=== PATIENT | female | born 1995 | race Caucasian/White ===

== ENCOUNTER 2024-04-08 08:02 | Outpatient (CLI) | payer OTHER, MEDICAID, SELFPAY ==
--- NOTE | 2024-04-08 08:15 | US_ITS ---
Patient: ENMANUEL GRAYSON Facility:?[facility] RIS Patient ID:?[id number] Site Patient ID:?[id number]. Site :?[id number] Study:?US-OB Pelvis OB TV-04/08/2024 8:53:45 AM Ordering Physician:?ASIA EPPS CNM Final Report: HISTORY: Dating and viability COMPARISON: None available of this gestation. TECHNIQUE: Transvaginal ultrasound examination of the early was performed. FINDINGS: A single intrauterine gestational sac is seen with a pole. The crown-rump length measurement of 1.9 cm gives an estimated gestational age of 8 weeks 3 days with an estimated date of delivery of 11/15/2024. This correlates well with the LMP of 02/10/2024 which gives a clinical age of 8 weeks 2 days. Regular cardiac activity is seen at 169 BPM. There is a small subchorionic hemorrhage located inferior to the gestational sac measuring 0.9 x 1.4 by 0.7 centimeters. Incidental note is made of incomplete fusion of the amnion chorion. Two fundal fibroids are seen on the right. The largest is located more superiorly measuring 2.5 x 1.8 x 2.2 centimeters. The smaller is located more inferiorly measuring 1.7 x 1.4 x 1.9 centimeters. There is no sign of free fluid in the pelvis. There is a corpus luteum cyst of in the left ovary. The ovaries are otherwise normal in appearance. IMPRESSION: 1. Single intrauterine gestation with estimated age of 8 weeks 2 days. 2. Regular cardiac activity is seen. 3. Small subchorionic hemorrhage located inferior to the gestational sac. Dictated by Kory Montes MD @ 04/08/2024 11:23:36 AM Signed by:?Kory Montes MD @04/08/2024 11:23:36 AM (Electronic Signature)
== END 2024-04-08 08:03 | disposition home or self-care (01) ==
LOC: US 08:03
PROVIDERS: Visit Provider Advanced Practice Midwife
DX: Z34.91 Encounter for supervision of normal pregnancy, unspecified, first trimester (principal); O20.9 Hemorrhage in early pregnancy, unspecified; Z3A.08 8 weeks gestation of pregnancy
CPT/HCPCS: 76817; 84443; 86703; 86706; 86803; 86850; 86900; 86901; 87086; 87340

== ENCOUNTER 2024-04-08 09:22 | Outpatient (CLI) | payer OTHER, SELFPAY | END 2024-04-08 09:23 | disposition home or self-care (01) | PROVIDERS: Visit Provider Advanced Practice Midwife | DX: Z34.91 Encounter for supervision of normal pregnancy, unspecified, first trimester (principal); Z3A.08 8 weeks gestation of pregnancy | CPT/HCPCS: 84443; 86592; 86703; 86704; 86706; 86762; 86787; 86803; 86850; 86900; 86901; 87086; 87340 ==

== ENCOUNTER 2024-07-02 11:57 | Outpatient (CLI) | payer BC, MEDICAID, SELFPAY ==
--- NOTE | 2024-07-02 12:15 | CRLHL7_ITS ---
For Patients: As a result of the Century Cures Act, medical imaging exams and procedure reports are released immediately into your electronic medical record. You may view this report before your referring provider. If you have questions, please contact your health care provider. INDICATION: Evaluate anatomy. COMPARISON: 04/08/2024 TECHNIQUE: Real time hoff scale imaging of the fetus was performed as well as color Doppler analysis of the umbilical vessels. FINDINGS: Sonographic imaging demonstrates a single living intrauterine gestation. Fetus demonstrates a regular cardiac rate of 151 beats per minute. Fetus has a variable position. The placenta lies anteriorly without evidence of placenta previa. Edge of the placenta is located 5.8 cm from the internal cervical os. Amniotic fluid volume appears normal. Single deepest vertical pocket: 5.5 cm. The cervix is closed and measures 3.4 cm in length. The composite ultrasound gestational age is calculated at 20 weeks 4 days with an estimated sonographic due date of 11/15/2024. The estimated weight is 397 grams which lies at the 80th %. The following biometric measurements were obtained: Biparietal diameter: 4.5 cm/19 weeks 5 days 21st% Head circumference: 17.8 cm/20 weeks 2 day 35th% Abdominal circumference: 15.3 cm/20 weeks 3 day 45th% Femur length: 3.8 cm/22 weeks 1 day 91st% The HC/AC ratio measures: 1.17 range (1.07-1.25) On anatomic survey, there is a normal appearance of the cerebral ventricles, cavum septi pellucidi, cisterna magna and cerebellum. The nose and lips appear normal. Incomplete visualization of the profile due to position. The cervical, thoracic and lumbar spine are well visualized and appear normal. There is a normal four-chamber heart view and the left and right ventricular outflow tracts appear normal. The diaphragm and stomach appear normal. The kidneys and bladder also appear normal. There is a normal three-vessel cord and eccentric cord insertion site. The four extremities appear normal. IMPRESSION: Concordance of clinical and sonographic dating. Incomplete visualization of the facial profile due to position. Remainder of the anatomic survey normal. Short-term follow-up recommended. Dictated by Pierce Banks MD @ 07/02/2024 10:27:32 PM (Electronically Signed)
== END 2024-07-02 11:58 | disposition home or self-care (01) ==
LOC: US 11:57
PROVIDERS: Visit Provider Advanced Practice Midwife
DX: Z34.92 Encounter for supervision of normal pregnancy, unspecified, second trimester (principal); Z3A.20 20 weeks gestation of pregnancy
CPT/HCPCS: 76805

== ENCOUNTER 2024-07-30 12:39 | Outpatient (CLI) | payer BC, SELFPAY ==
--- NOTE | 2024-07-30 13:00 | CRLHL7_ITS ---
For Patients: As a result of the Century Cures Act, medical imaging exams and procedure reports are released immediately into your electronic medical record. You may view this report before your referring provider. If you have questions, please contact your health care provider. INDICATION: profile needed COMPARISON: 07/02/2024 TECHNIQUE: Real-time hoff-scale imaging of the pelvis was performed. FINDINGS: heart rate 133 beats per minute. Amniotic fluid single deepest pocket 4.3 cm. Anterior placenta. Vertex position. Normal profile. IMPRESSION: Normal profile. Dictated by Pierce Banks MD @ 07/30/2024 2:37:23 PM (Electronically Signed)
== END 2024-07-30 12:40 | disposition home or self-care (01) ==
LOC: US 12:39
PROVIDERS: Visit Provider Advanced Practice Midwife
DX: Z36.2 Encounter for other antenatal screening follow-up (principal)
CPT/HCPCS: 76815

== ENCOUNTER 2024-08-27 13:05 | Outpatient (CLI) | payer BC, SELFPAY | END 2024-08-27 13:06 | disposition home or self-care (01) | LOC: NFLDREF 08-31 22:59 | PROVIDERS: Visit Provider Midwife | DX: Z34.92 Encounter for supervision of normal pregnancy, unspecified, second trimester (principal); Z3A.24 24 weeks gestation of pregnancy | CPT/HCPCS: 86592 ==

== ENCOUNTER 2024-10-20 15:18 | Outpatient (CLI) | payer BC, SELFPAY | END 2024-10-20 15:19 | disposition home or self-care (01) | LOC: NFLDREF 10-23 12:10 | PROVIDERS: Visit Provider Advanced Practice Midwife | DX: Z34.03 Encounter for supervision of normal first pregnancy, third trimester (principal); Z3A.36 36 weeks gestation of pregnancy | CPT/HCPCS: 87081; 87653 ==

== ENCOUNTER 2024-10-28 14:00 | Outpatient (CLI) | payer BC, MEDICAID, SELFPAY ==
[2024-10-28 14:09] VITALS: PULSE 122; O2SAT 98
[2024-10-28 14:12] VITALS: BP 123/80; PULSE 118; TEMP 36.6
[2024-10-28 14:43] LABS: Amnisure Rom* Negative
[2024-10-28 14:53] LABS: Clue Cells No Clue Cells Seen (None Seen); Trichomonas No Trichomonas Seen (None Seen); Yeast No Yeast Seen (None Seen)
--- NOTE | 2024-10-28 15:36 | PC.OBNST ---
NST Note NST Note Start: 10/28/24 14:05 Freq: ONCE Status: Active Protocol: Document 10/28/24 15:35 ADVENT (Rec: 10/28/24 15:35 ADVENT [id number]) NST Note 1 Para (# of births) 0 EDC 11/16/24 Gestational Age In Weeks & Days 37 Weeks & 2 Days Patient Presented with Complaint(s) of Leaking fluid Reactive Yes Appropriate for Gestational Age Yes AGGIE Gomes Date 10/28/24 Reactive Yes Appropriate for Gestational Age Yes AGGIE Chan Date 10/28/24 OB NST charge Yes Complete NST Note via Write Note Yes The provider's electronic signature indicates the NST is reactive/appropriate for gestational age. *Note to provider: If an addendum is required, open the patient's chart and click on the note under the Nurse/Allied Health tab.
== END 2024-10-28 15:20 | disposition home or self-care (01) ==
LOC: OB OUT 14:01 → OB 14:01
PROVIDERS: Visit Provider Advanced Practice Midwife
DX: O47.1 False labor at or after 37 completed weeks of gestation (principal); Z3A.37 37 weeks gestation of pregnancy
CPT/HCPCS: 59025; 84112; 87210; G0463

== ENCOUNTER 2024-11-19 09:30 | Inpatient (IN) | payer BC, MEDICAID, SELFPAY ==
[2024-11-19] VITALS (21 sets, daily range): BP systolic 110–135; BP diastolic 56–90; PULSE 71–127; TEMP 36.4–36.6; O2SAT 90–100; BMI 39.2
[2024-11-19] MEDS: hydrOXYzine pamoate 25 MG CAPSULE 100 MG PO (09:13)
--- NOTE | 2024-11-19 15:00 | W.PM.LDBA ---
Subjective History of Present Illness Date Seen: 11/19/24 Narrative: Marissa is a 29 yo at 40 3/7 weeks gestation being admitted to Labor and Delivery for spontaneous onset of labor. She presented this morning for rule out labor with contractions becoming regular and more intense. While in triage she felt they had slowed down but she had made change with cervical exam. Shortly after exam, contractions again intensified. Her plan for pain relief is to try the tub or waterbirth but she is open to options if needed. She is coping well with labor. She is supported in labor by her , Aye. Her full history and physical was dictated by NAVEED Rutherford on 10/26/2024. Please see this for details. Specific Issues/Plans [id number]--Qauyir H&P done by NAVEED Rutherford on 10/26/24 # Anxiety/Depression Stable on bupropion, buspirone, fluoxetine, okay'd to refill with us during Meds managed by Arin Fragoso APRN at [place] # Pre- BMI 34.9 Taking baby ASA # Fibroids, right uterus. No further recommendations from radiology. 1.7 x 1.4 x 1.9 cm 2.5 x 1.8 x 2.2 cm # Anemia in . 9.9 at 28w-started on iron PO QOD, 11.1 at 34w Pap due COVID: initial series, not boosted Flu: declined TDAP: 09/14/2024 RSV: 09/28/2024 32wk Mental Health: 09/14/2024 34wk Hgb: 09/28/2024 :11.1 OB - Problem Based A/P Additional Plan (1) Pain during labor: Status: Acute (2) 40 weeks gestation of : Status: Acute (3) Anemia affecting : Status: Acute (4) Depression: Status: Acute (5) Generalized anxiety disorder: Status: Acute Plan ASSESSMENT:? 29 at 40 3/7 weeks gestation? complicated by:?Anxiety/Depression, Pre- BMI 34.9, Fibroids, right uterus, Anemia in Labor type: Spontaneous, Early labor? Category 1 FHR pattern.?? Labor complicated by: none? GBS negative? ? PLAN:? 1. Routine intrapartum cares as ordered. Continue with expectant management? 2. Monitoring per policy, continuous at this time due to periods of minimal variability. If remains reactive, can switch to intermittent monitoring.? 3. Planning unmedicated . Desires water . Consent signed. Hep C negative. Candidate for analgesia of choice.?? 4. Patient encouraged to reposition and ambulate to promote physiologic labor and .? 5. Anticipate ? Delivery/Labor/Induction Plan Plan: expectant management OB Result Labs Blood Type: AB (+) positive GBS Status: negative OB Exam Physical Exam Vital signs: Temp Pulse BP Pulse Ox 97.9 F 92 120/79 98 11/19/24 16:00 11/19/24 15:30 11/19/24 15:30 11/19/24 09:53 Narrative: Vitals Reviewed Constitutional:? Alert and oriented x3 HEENT:? Normocephalic, atraumatic Neck:? Supple Lungs:? Clear to auscultation bilaterally Heart:? Regular rate and rhythm, no murmur, rub or gallop Abdomen:? Soft, nontender, and gravid. Vertex by Eddy's, confirmed with cervical exam. Extremities:? No edema or erythema Cervix: 3-4 cm/60%/-1 station/vertex NST: 135 bpm/moderate variability/15x15 accelerations/no decelerations/contractions every 3-4 minutes Detailed Labor and Delivery Exam Patient Gravid: Yes
[2024-11-19 15:22] LABS: Amnisure Rom* Negative
[2024-11-19] MEDS: ONDANSETRON 2 MG/ML inj 4 MG IV (19:57)
[2024-11-19] MEDS: LACTATED RINGERS 1000 ML 1,000 ML 1200 ML IV (19:57)
[2024-11-19 20:07] LABS: Basophils Percent Auto 0.1 % (0.0-3.0); Eosinophils Percent Auto 0.2 % (0.0-7.0); Hematocrit 39.8 % (33.0-51.0); Hemoglobin* 12.7 gm/dL (12.0-16.0); Immature Granulocytes Pct Auto 0.7 %; Lymphocytes Percent Auto 11.2 % (20-44); Mean Corpuscular HGB Conc 32 gm/dL (32-36); Mean Corpuscular Hemoglobin 27 pg (26-34); Mean Corpuscular Volume 85 fL (80-100); Monocytes Percent Auto 6.1 % (0.0-11.0); Neutrophils Percent Auto 81.7 % (42.0-72.0); Platelet Count* 302 K/uL (140-440); RDW Coefficient of Variation % 14.5 % (11.5-15.5); Red Blood Count 4.68 m/uL (4.00-5.20); White Blood Count* 16.68 K/uL (4.50-11.00)
[2024-11-19 20:17] LABS: Slide Review Reflex No
[2024-11-19] MEDS: OXYTOCIN 30 unit/500 ML in NS 30 UNIT/500 ML BAG 300 UNIT IVPB (21:10)
--- NOTE | 2024-11-19 22:24 | P.OBPN_ITS ---
Subjective Time Seen by Provider: 15:30 Date Seen: 11/19/24 Narrative: Marissa is a 29 yo G1 that presented in spontaneous labor this morning. Throughout the day she was able to nap and was encouraged to do the labor warm up to facilitate labor. She is coping well with labor. She reported to the RN feeling a gush of fluid at 1440. RN nurse did an amnisure to confirm and it was negative. CNM rounding at bedside and patient reporting increased contractions. Offered SVE to evaluate for ROM and cervical change to further discuss plan of staying vs going home. She is supported in labor by her , Aye. Objective Exam: Objective: Constitutional: Alert and oriented x3, moderate distress, coping well Vital signs stable, see nurse documentation Abdomen: gravid, contractions palpate moderate with contractions and soft between Cervix: 4.5 cm/70%/0 station/vertex; ROM confirmed with exam. Mec stained fluid noted NST: 150 bpm/moderate variability/15x15 accelerations/no decelerations/contractions every 1-5 Vital Signs: Last Vital Signs Temp 97.6 F 11/19/24 17:23 Pulse 110 H 11/19/24 22:09 BP 114/60 11/19/24 22:09 Pulse Ox 90 11/19/24 20:18 Assessment Amniotic Membrane Status: SROM Plan Plan: 29 at 40 3/7 weeks gestation? complicated by:?Anxiety/Depression, Pre- BMI 34.9, Fibroids, right uterus, Anemia in Labor type: Spontaneous, Early labor? Category 1 FHR pattern.?? Labor complicated by: light meconium? GBS negative? ? PLAN:? 1. Routine intrapartum cares as ordered. Continue with expectant management? 2. Monitoring per policy, continuous at this time due to periods of minimal variability. If remains reactive, can switch to intermittent monitoring.? 3. Planning unmedicated . Desires water . Consent signed. Hep C negative. Candidate for analgesia of choice.?? 4. Patient encouraged to reposition and ambulate to promote physiologic labor and .? 5. Meconium stained fluid, INFORMATION SECURITY ARCHITECT notified, will call to attend delivery when pushing or complete. 5. Anticipate ?
[2024-11-19] MEDS: ACETAMINOPHEN 500 MG TABLET 1000 MG PO (22:43)
--- NOTE | 2024-11-19 22:51 | W.PM.OBVAGDE ---
OB Procedure Vag Delivery Mother Details Mother Details: The patient is a 29 year-old, 1, now Para 1, admitted on 11/19/24 at 40.3 weeks gestation. : 1 Para: 1 Admission Date: 11/19/24 Additional Details Amniotic Membrane Rupture Date: 11/19/24 Amniotic Membrane Rupture Time: 14:40 Amniotic Membrane Fluid Description: Meconium Stained and Yellow Analgesia/Anesthesia Type: None Waterbirth: Yes Pitcoin: Yes ([facility] only) Intrapartal Events: None Labor Onset: 16:43 Complete: 20:18 Pushin:00 Heart: heart tones during second stage were category II with more recurrent variables at the end of the 2nd stage with delivery imminent. Delivery Details Delivery Date: 11/19/24 Delivery Time: 20:59 Route of delivery: Gender: Female Infant Viability: Alive; Heart Rate Present Position at Delivery: OP Delivery Details: Patient was admitted for spontaneous and progressed normally. SROM noted at 1643 with meconium fluid. Patient labored for a period in the tub. She got out and was up to the bathroom. She was encouraged to do side lying release and tolerated this well but after requested an epidural. Anesthesia was notified, however patient began involuntarily pushing. Upon exam, she was noted to be complete and elected to defer epidural and return to the tub. Patient was complete at 2018 and began involuntarily pushing at 2000. of a viable female at 2058 in semi-fowlers in the tub. Vertex delivered OA, nuchal cord identified and baby was somersaulted out. No shoulder. Body delivered easily and without incident. Infant passed to mothers abdomen with a vigorous cry. Cord was clamped and cut at > 5 minutes. APGARS were 8 at one minute and 9 at five minutes respectively. Mouth was bulb suctioned. Intact placenta with a 3 vessel cord delivered spontaneously at 2125. Placenta was noted to be calcified. Fundus firm. 2nd degree perineum laceration identified, extended to rectal mucosa via skin and repaired in typical fashion. Rectal exam performed to confirm no rectal muscle involvement. QBL 300 cc + 200 cc. Mother and baby stable; mother plans to breastfeed. weight 6 lb 15 oz. 1 Minute Interval Total Score: 8 5 Minute Interval Total Score: 9 Additional Details Shoulder Dystocia: No Placenta Delivery Time: 21:26 Placental Delivery Description: Spontaneous Delivery repair: Vicryl Procedure Done: Global Blood Loss: 500 Laceration: Perineal - 2nd Degree Blood Loss Measurement Type: QBL Bakri Used: No Sponge/Need Count Correct: Yes Cord Vessel Description: 3 Vessels, Nuchal Cord, Loose and Delivered through Event Summary Status: Mother and were stable after delivery. Disposition: floor
[2024-11-20 03:51] VITALS: BP 108/74; PULSE 107; RESP 12; TEMP 36.7; O2SAT 96
[2024-11-20 08:15] VITALS: BP 116/75; PULSE 97; RESP 18; TEMP 36.7; O2SAT 97
[2024-11-20] MEDS: ACETAMINOPHEN 500 MG TABLET 1000 MG PO ×2 (09:21→22:47)
[2024-11-20] MEDS: DOCUSATE SODIUM 100 MG CAPSULE PO ×2 (09:21→22:48)
--- NOTE | 2024-11-20 10:32 | P.OBPN_ITS ---
OB - PN:Subj Subjective Date Seen: 11/20/24 Narrative: Marissa is a 29 year old who was admitted for active labor and proceeded to have a vaginal with a 2nd degree laceration that was repaired.The patient feels well.? The pain is well controlled with current medications.? She has no new complaints.? Urinary output is adequate and she is voiding without difficulty.? Has a good appetite, is tolerating a general diet, is not yet passing flatus, and has not had a bowel movement.? Has small amount of rubra lochia.? She is ambulating well. She is and reports it is going better with the nipple shield.? OB - PN: Obj Exam Physical Exam: Vital signs: Temp Pulse Resp BP Pulse Ox O2 Del Method 98.1 F 97 18 116/75 97 Room Air 11/20/24 08:15 11/20/24 08:15 11/20/24 08:15 11/20/24 08:15 11/20/24 08:15 11/20/24 03:51 Narrative: GENERAL APPEARANCE:? normal affect, alert, no distress MOOD:? appropriate CHEST:? clear to auscultation HEART:? regular rate and rhythm ABDOMEN:? soft, non-tender the uterine fundus is At Umbilicus, Midline and is appropriate for the stage of recovery. PERINEUM:? mild edema of the perineum, there is a Perineal Laceration that was repaired and is well approximated. EXTREMITIES:? normal and no edema OB - PN: Obj Data Labs Labs: Laboratory Results - last 24 hr 11/19/24 11/19/24 14:53 20:00 WBC 16.68 H RBC 4.68 Hgb 12.7 Hct 39.8 MCV 85 MCH 27 MCHC 32 RDW Coeff of Anabelle 14.5 Plt Count 302 Neut % (Auto) 81.7 H Lymph % (Auto) 11.2 L Isabela % (Auto) 6.1 Eos % (Auto) 0.2 Baso % (Auto) 0.1 Neut # (Auto) 13.60 H Lymph # (Auto) 1.90 Isabela # (Auto) 1.00 H Eos # (Auto) 0.00 Baso # (Auto) 0.00 Abs Immat Gran (auto) 0.10 Imm/Tot Granulo (auto) 0.7 Membrane Rupture Negative Blood Type AB Positive Antibody Screen NEGATIVE OB - PN: A/P Delivery Assessment and Plan (1) care and examination of lactating mother: Status: Acute (2) Pain during labor: Status: Resolved (3) 40 weeks gestation of : Status: Resolved (4) Anemia affecting : Status: Acute (5) Depression: Status: Acute (6) Generalized anxiety disorder: Status: Acute Plan Comments: PP day #1 Routine care May see as desired Anticipate discharge 11/21/2024
[2024-11-20 12:28] VITALS: BP 101/65; PULSE 103; RESP 18; TEMP 37.1; O2SAT 96
[2024-11-20 15:44] VITALS: BP 103/72; PULSE 95; RESP 18; TEMP 36.6; O2SAT 98
[2024-11-20 19:52] VITALS: BP 104/72; PULSE 108; RESP 16; TEMP 36.6; O2SAT 97
[2024-11-20] MEDS: FLUOXETINE HCL 20 MG CAPSULE 60 MG PO (22:48)
[2024-11-20] MEDS: BUSPIRONE 10 MG TABLET PO (22:48)
[2024-11-21 03:35] VITALS: BP 111/76; PULSE 97; RESP 12; TEMP 36.7; O2SAT 96
[2024-11-21] MEDS: ACETAMINOPHEN 500 MG TABLET 1000 MG PO (07:40)
--- NOTE | 2024-11-21 09:57 | P.DS_ITS ---
DS: Providers Provider Date Seen: 11/21/24 Date of admission: 11/19/24 09:30 Primary care physician: Not a Local Provider Admitting Clinician: Mabel Garcia CNM Attending Physician on discharge: Mabel Garcia CNM Date of Discharge: 11/21/24 DS: Diagnosis Discharge Diagnosis (1) care and examination of lactating mother: Status: Acute (2) Vaginal delivery: Status: Acute (3) Generalized anxiety disorder: Status: Acute (4) Depression: Status: Acute Exam Narrative: Exam Narrative: GENERAL APPEARANCE:? normal affect, alert, no distress? MOOD:? appropriate? CHEST:? clear to auscultation and percussion? HEART:? regular rate and rhythm? ABDOMEN:? soft, non-tender the uterine fundus is U/2 and is appropriate for the stage of recovery.? PERINEUM:? mild edema of the perineum, there is a 2nd degree laceration that is healing well.? EXTREMITIES:? normal and no edema? Const: Vital Signs, click to edit/add: Vital Signs - 24 hr 11/20/24 12:28 11/20/24 15:44 11/20/24 19:52 Temperature 98.7 F 97.8 F 97.8 F Pulse Rate [Pulse Oximeter] 103 H 95 108 H Respiratory Rate 18 18 16 Blood Pressure [Le ft Arm] 101/65 103/72 104/72 Pulse Oximetry 96 98 97 Oxygen Delivery Me thod Room Air Room Air Room Air 11/21/24 03:35 Temperature 98.0 F Pulse Rate [Pulse Oximeter] 97 Respiratory Rate 12 Blood Pressure [Le ft Arm] 111/76 Pulse Oximetry 96 Oxygen Delivery Me thod Room Air Documenting provider has reviewed patient's vital signs: yes OB - DS: Summary Hospital Course Hospital Course: Marissa is a 29 year old G 1 P 1 at 40.4 weeks gestation that was admitted to the Center on 11/19/24 for labor. She had an uncomplicated vaginal delivery. She delivered a viable female infant. She is breast feeding and denies concerns with how it is going. the patient has done well. Her pain is well controlled with current medications.? She has no new complaints.? Urinary output is adequate and she is voiding without difficulty.? Has a good appetite, is tolerating a general diet, is passing flatus, and has not had a bowel movement.? Has scant amount of rubra lochia.? She is ambulating well. She is not planning on using anything from contraception. Encouraged one year spacing and discussed barrier options available (condoms and Caya). She is to discharge today but it is uncertain if baby will stay an additional night for observation after apneic episodes. She has only used Tylenol occasionally and declines ibuprofen prescription on discharge. Peripartum Data Infant delivery method: Vaginal Laceration description: Perineal - 2nd Degree Episiotomy description: None complications: none [place] Infant Gender: Female Infant Discharge Plan: Home (uncertain on timing of today vs tomorrow per peds recommendation) Status at Discharge Functional status at discharge: independent ambulation Overall status at discharge: patient is progressing back to baseline Time Spent with Patient Time attestation: Total time spent providing and/or coordinating discharge services: Discharge Plan Discharge Disposition: Home, Self-Care Date of Admission: 11/19/24 09:30 Attending Provider on Discharge: Missy Carver Primary Care Provider: Provider,Not a Local Condition: Stable Anticipated Discharge Date/Time: 11/21/24 17:00 Discharge Medications: New docusate sodium 100 mg Capsule 100 mg PO BID Qty: 90 0RF Rx Instructions: Take 1-2 tablets daily as needed for constipation. Continued Plus DHA 27 mg iron-1 mg -312 mg-250 mg combo pack 1 pkg PO DAILY PRN calcium carbonate-vitamin D3 600 mg-20 mcg (800 unit) tablet 1 tab PO BID ketoconazole 2 % shampoo 1 applic topical .1xw clobetasol 0.05 % ointment 1 applic topical ONCE PRN omeprazole 20 mg capsule,delayed release(DR/EC) 20 mg PO QDAY bupropion HCl 150 mg tablet extended release 24 hr 150 mg PO QAM Qty: 90 3RF ferrous fumarate 324 mg (106 mg iron) tablet 324 mg PO .every other day Qty: 60 1RF fluoxetine 40 mg capsule 40 mg PO QDAY Qty: 60 2RF Rx Instructions: 40 mg + 20 mg capsule for 60 mg total orally every day; fluoxetine 20 mg capsule 20 mg PO QDAY Qty: 60 2RF Rx Instructions: 40 mg + 20 mg capsule for 60 mg total orally every day; buspirone 10 mg tablet 10 mg PO BID Qty: 60 1RF Discontinued aspirin 81 mg tablet,chewable 81 mg PO QDAY Discharge Orders: Discharge Order (Routine); Ordered 11/21/24 Ordered By: Missy Carver Patient Education: OB Vaginal/Breast Feeding Additional Instructions: Discharge instructions were reviewed with the patient including signs and symptoms of infection and home going medications.? Lifting Restrictions: 20 pounds for 6? weeks? ?? Do not drive while taking narcotic pain meds.? Off Work or School for 6 weeks.? ?? Symptoms to report to doctor:? -Bleeding that saturates more than one pad per hour? -Passing clots larger than the size of a golf ball? -Pain not relieved by prescribed medication? -Fever above 100.4 degrees Fahrenheit? -A foul vaginal odor? -Difficulty in emotions, mood and functions? -Thoughts of hurting yourself and/or ? -Painful, reddened area in your breast? -Any drainage, redness or tenderness in your IV/epidural site? -Severe headache that doesn't improve after taking medications? -Changes in vision, including temporary loss of vision, blurred vision, and/or light sensitivity? -Upper abdominal pain (usually under ribs on the right side)? -Decrease in urination or painful, frequent urinating? -Chest pain? -Shortness of breath? -Tenderness or pain with redness and/swelling in the calf(s) of your leg? ?? Activity Level: Activity as Tolerated Discharge Diet: Regular Follow Up Appointments: Provider,Not a Local [Primary Care Provider[facility] - [facility] [Provider Group] Forms: MyHealth Info Instructions
[2024-11-21] MEDS: DOCUSATE SODIUM 100 MG CAPSULE PO (10:51)
[2024-11-21 11:03] VITALS: BP 106/75; PULSE 96; RESP 16; TEMP 36.6; O2SAT 98
== END 2024-11-21 11:07 | disposition home or self-care (01) | DRG 560 ==
LOC: OB OUT 09:33 → OB 09:33
PROVIDERS: Admitting Provider Advanced Practice Midwife; Visit Provider Midwife
DX: O48.0 Post-term pregnancy (principal); O70.1 Second degree perineal laceration during delivery; O77.0 Labor and delivery complicated by meconium in amniotic fluid; O99.344 Other mental disorders complicating childbirth; F41.1 Generalized anxiety disorder; F32.A Depression, unspecified; O99.02 Anemia complicating childbirth; D64.9 Anemia, unspecified; O34.13 Maternal care for benign tumor of corpus uteri, third trimester; D25.9 Leiomyoma of uterus, unspecified; O43.893 Other placental disorders, third trimester; Z3A.40 40 weeks gestation of pregnancy; Z37.0 Single live birth
CPT/HCPCS: 36415; 84112; 85025; 86850; 86900; 86901; A9270; J2371; J2405; J7120

== ENCOUNTER 2024-11-26 21:26 | Inpatient (IN) | payer BC, MEDICAID, SELFPAY ==
[2024-11-26 21:39] VITALS: BP 132/92; BP 135/92; PULSE 90; RESP 16; TEMP 36.7; O2SAT 97; BMI 20.7
[2024-11-26 22:09] VITALS: BP 134/103; PULSE 80; RESP 18; O2SAT 97
--- NOTE | 2024-11-26 22:50 | ED_ITS ---
HPI - General Adult General Date Seen: 11/26/24 Chief complaint: Post OB/Post- Complication Stated complaint: 7 days high bp Time Seen by Provider: 11/26/24 21:31 Source: patient History of Present Illness HPI narrative: Patient is a 29-year-old young woman who delivered at term about a week ago here. She says and delivery were uncomplicated, she did not have any problems with her blood pressure during . She says over the past few days she has noted increasing swelling in her ankles, so today she checked her blood pressure and it was 146/108 at home. She denies any headache, chest pain, abdominal pain, nausea or vomiting. She has not had fevers, urinary symptoms. Related Data Home Medications ?Medication ?Instructions ?Recorded ?Confirmed calcium 600 mg (as 1 tab PO BID 04/08/24 11/19/24 carbonate)-vitamin D3 20 mcg (800 unit) tablet clobetasol 0.05 % topical ointment 1 applic topical ONCE PRN 04/08/24 11/19/24 ketoconazole 2 % shampoo 1 applic topical .1xw 04/08/24 11/19/24 vits-iron 27 mg-folic ac 1 pkg PO DAILY PRN 04/08/24 11/19/24 1 mg-om3 312 mg-dha 250 mg oral pack ( Plus DHA) omeprazole 20 mg capsule,delayed 20 mg PO QDAY 07/02/24 11/19/24 release Previous Rx's ?Medication ?Instructions ?Recorded fluoxetine 20 mg capsule 20 mg PO QDAY #60 caps 07/21/24 fluoxetine 40 mg capsule 40 mg PO QDAY #60 caps 07/21/24 bupropion HCl 150 mg 24 hr tablet, 150 mg PO QAM #90 tabs 08/27/24 extended release ferrous fumarate 324 mg (106 mg 324 mg PO .every other day #60 tabs 08/27/24 iron) tablet buspirone 10 mg tablet 10 mg PO BID #60 tabs 10/05/24 docusate sodium 100 mg capsule 100 mg PO BID #90 caps 11/21/24 Allergies Allergy/AdvReac Type Severity Reaction Status Date / Time citalopram (From CelTizra) Allergy Severe Anxiety Verified 11/19/24 06:30 menthol Allergy Intermediate Hives Verified 11/19/24 06:30 Review of Systems Status of ROS: Reports: 10 or more systems reviewed and unremarkable except as noted in History and below [facility] Medical History Anemia affecting ?O99.019 - Anemia complicating , unspecified trimester (ICD-10) Generalized anxiety disorder ?F41.1 - Generalized anxiety disorder (ICD-10) Family history of thyroid disease ?Z83.49 - Family history of other endocrine, nutritional and metabolic diseases (ICD-10) Depression ?F32.A - Depression, unspecified (ICD-10) Elbow dislocation ?S53.106A - Unspecified dislocation of unspecified ulnohumeral joint, initial encounter (ICD-10) Surgical History [place] teeth extracted ?K08.409 - Partial loss of teeth, unspecified cause, unspecified class (ICD- 10) Family History Mother Thyroid disease Depression Father Dissociative identity disorder Social History Narrative: SOCIAL Education: High school Work: [employer] in [employer] Partner: Aye, Associated Lives with: Aye Pets: Dog and 2 fish, tortoise, 2 bearded dragons Abuse: Denies past/present Special Diet: Denies Ok with a blood transfusion: yes Culture or presybeterian beliefs: denies RISK FACTORS Exercise Times/wk: Not routine Hx of Depression and/or Anxiety/other mood disorder: Depression/Anxiety, Arin Hak at [facility] Seat Belt Use: Routinely Smoking: Denies present; hx of smoking stopped 5 years ago Alcohol/day: Denies while ; Rare/social Caffeine: Coffee, not drinking right now; Mt dew 1 can per day Drug Use: Denies past/present; smokes in house, she denies Chicken Pox: Yes as a child MRSA: Denies What is your current living situation?: I presently have a place to live Problems where you live: no known problems In the past 12 months, utilities in danger of being shut off: no In past 12 months, lack of transportation kept you from medical appts, meetings, work, or getting things needed for daily living: no In the past 12 mos, have been you worried that your food would run out before you had money to buy more?: never true In the past 12 mos, the food you bought just didn't last and you didn't have money to buy more?: never true Smoking Status: Former smoker What tobacco products do you use: cigarettes Years smoked: 7 Smoking quit date/years: <= 15 years ago Do you use any of these nicotine containing products: None Second hand tobacco smoke exposure: No How often do you have a drink containing alcohol: never AUDIT-C Alcohol total score: 0 Non-prescribed substance use: denies use How often does anyone, including family, friends and others, physically hurt you : never How often does anyone, including family, friends and others, insult or talk down to you: never How often does anyone, including family, friends and others, threaten you with harm: never How often does anyone, including family, friends and others, scream or curse at you: never service: No Exam Narrative: Exam Narrative: Vital signs reviewed In general, alert, nontoxic Head: Normocephalic, atraumatic. Eyes: Sclera clear. Pupils equal and reactive. ENT: Mucous membranes moist. Neck: Supple without adenopathy. Heart: Regular rate and rhythm without murmur. Lungs: Clear. No increased work of breathing, crackles or wheezes. Abdomen: Soft, nontender to palpation. Extremities: Well perfused, pulses intact. Trace edema in her ankles to her shins. No erythema, no tenderness. Neurologic: Alert, conversant. Speech fluent, face symmetric. Moves all extremities equally. Skin: Warm, dry well perfused. Affect: Normal. Const: Vital Signs, click to edit/add: Vital Signs - 24 hr 11/26/24 21:39 11/26/24 22:09 Temperature 98.1 F Pulse Rate [Pulse Oximeter] 90 80 Respiratory Rate 16 18 Blood Pressure [Le ft Upper Arm] 132/92 H 134/103 H Blood Pressure [Ri ght Upper Arm] 135/92 H Pulse Oximetry 97 97 Oxygen Delivery Me thod Room Air Room Air Course Course ED Course: Several blood pressures here showed a systolic in the 130s and diastolic in the 100-110 range. However, she is not showing any other symptoms. Labs are drawn for CBC, metabolic panel, liver panel and we obtained a UA. Labs are most notable for mild elevations of her LFTs including an AST of 46 and ALT of 100. Alk phos is 155. Platelets are normal, urinalysis is unremarkable, no protein. 2-5 red cells and white cells. She has continued to remain asymptomatic here, case discussed with Dr. Davison. She will require admission for treatment of preeclampsia secondary to elevated LFTs. Patient will be transferred to the [facility] for initiation of magnesium and labetalol. Vital Signs Vital signs: Initial Vital Signs Temperature 98.1 F 11/26/24 21:39 Temperature Source Temporal Artery Scan 11/26/24 21:39 Pulse Rate 90 11/26/24 21:39 Respiratory Rate 16 11/26/24 21:39 Blood Pressure 135/92 H 11/26/24 21:39 Blood Pressure Mean 106 H 11/26/24 21:39 Blood Pressure Position Sitting 11/26/24 21:39 Pulse Oximetry 97 11/26/24 21:39 Oxygen Delivery Method Room Air 11/26/24 21:39 Vital Signs Temperature 98.1 F 11/26/24 21:39 Pulse Rate 90 11/26/24 21:39 Respiratory Rate 16 11/26/24 21:39 Blood Pressure 135/92 H 11/26/24 21:39 Pulse Oximetry 97 11/26/24 21:39 Oxygen Delivery Method Room Air 11/26/24 21:39 Temperature 98.1 F 11/26/24 21:39 Pulse Rate 80 11/26/24 22:09 Respiratory Rate 18 11/26/24 22:09 Blood Pressure 134/103 H 11/26/24 22:09 Pulse Oximetry 97 11/26/24 22:09 Oxygen Delivery Method Room Air 11/26/24 22:09 Medical Decision Making Lab Data Labs: Lab Results 11/26/24 11/26/24 Range/Units 22:23 22:42 WBC 9.39 (4.50-11.00) K/uL RBC 4.09 (4.00-5.20) m/uL Hgb 11.1 L (12.0-16.0) gm/dL Hct 35.6 (33.0-51.0) % MCV 87 (80-100) fL MCH 27 (26-34) pg MCHC 31 L (32-36) gm/dL RDW Coeff of Anabelle 14.9 (11.5-15.5) % Plt Count 376 (140-440) K/uL Neut % (Auto) 55.0 (42.0-72.0) % Lymph % (Auto) 31.6 (20-44) % [place] % (Auto) 8.3 (0.0-11.0) % Eos % (Auto) 3.6 (0.0-7.0) % Baso % (Auto) 0.4 (0.0-3.0) % Neut # (Auto) 5.16 (1.7-7.0) K/uL Lymph # (Auto) 2.97 H (0.90-2.90) K/uL [place] # (Auto) 0.80 (0.00-0.90) K/UL Eos # (Auto) 0.34 (0.00-0.50) K/uL Baso # (Auto) 0.04 (0.00-0.30) K/uL Abs Immat Gran (auto) 0.10 (0.00-0.30) K/uL Imm/Tot Granulo (auto) 1.1 % Sodium 135 (135-149) mmol/L Potassium 3.4 L (3.6-5.1) mmol/L Chloride 106 (96-114) mmol/L Carbon Dioxide 22 (20-32) mmol/L Anion Gap 7 (7-15) mEq/L BUN 7 (5-24) mg/dL Creatinine 0.6 (0.5-1.5) mg/dL Estimated Creat Clear 127.95 Estimated GFR 125 ml/min Glucose 104 (60-115) mg/dL Calcium 8.7 (8.4-10.6) mg/dL Total Bilirubin 0.2 (0.1-1.5) mg/dL Direct Bilirubin 0.2 (0.0-0.5) mg/dL AST 46 H (12-35) U/L ALT 100 H (4-35) U/L Alkaline Phosphatase 155 H (40-150) U/L Total Protein 6.6 (6.0-8.3) g/dL Albumin 3.5 (3.3-5.0) g/dL Urine Color Light yellow (Yellow) Urine Appearance Clear (Clear) Urine pH 6.0 (5.0-8.5) Ur Specific [place] <= 1.005 (1.000-1.030) Urine Protein Negative (Negative) Urine Glucose (UA) Negative (Negative) Urine Ketones Negative (Negative) Urine Blood 3+ A (Negative) Urine Nitrite Negative (Negative) Urine Bilirubin Negative (Negative) Urine Urobilinogen 0.2 (0.2-1.0) Ur Leukocyte Esterase 2+ A (Negative) Urine RBC 2-5 A (0-2) Urine WBC 5-10 A (0-5) Ur Squamous Epith Cells Few (None-Few) Urine Bacteria Few A (None) Discharge Plan Discharge Clinical Impression: Pre-eclampsia Patient Disposition: Admitted As Observation Condition: Stable
[2024-11-26 23:01] LABS: Appearance Urine Clear (Clear); Bilirubin Urine Negative (Negative); Blood Urine 3+ (Negative); Color Urine Light yellow (Yellow); Glucose Urine Negative (Negative); Ketones Urine Negative (Negative); Leukocyte Esterase Urine 2+ (Negative); Nitrite Urine Negative (Negative); Protein Urine Negative (Negative); Specific Gravity Urine <= 1.005 (1.000-1.030); Urobilinogen Urine 0.2 (0.2-1.0)
[2024-11-26 23:12] LABS: Basophils Absolute Auto 0.04 K/uL (0.00-0.30); Basophils Percent Auto 0.4 % (0.0-3.0); Eosinophils Absolute Auto 0.34 K/uL (0.00-0.50); Eosinophils Percent Auto 3.6 % (0.0-7.0); Hematocrit 35.6 % (33.0-51.0); Hemoglobin* 11.1 gm/dL (12.0-16.0); Immature Granulocytes Pct Auto 1.1 %; Lymphocytes Absolute Auto 2.97 K/uL (0.90-2.90); Lymphocytes Percent Auto 31.6 % (20-44); Mean Corpuscular HGB Conc 31 gm/dL (32-36); Mean Corpuscular Hemoglobin 27 pg (26-34); Mean Corpuscular Volume 87 fL (80-100); Monocytes Percent Auto 8.3 % (0.0-11.0); Neutrophils Absolute Auto 5.16 K/uL (1.7-7.0); Platelet Count* 376 K/uL (140-440); RDW Coefficient of Variation % 14.9 % (11.5-15.5); Red Blood Count 4.09 m/uL (4.00-5.20); Slide Review Reflex No; White Blood Count* 9.39 K/uL (4.50-11.00)
[2024-11-26 23:13] LABS: Albumin* 3.5 g/dL (3.3-5.0)
[2024-11-26 23:14] LABS: Chloride* 106 mmol/L (96-114); Potassium* 3.4 mmol/L (3.6-5.1); Sodium* 135 mmol/L (135-149)
[2024-11-26 23:16] LABS: Anion Gap 7 mEq/L (7-15); Aspartate Amino Transferase* 46 U/L (12-35); Bilirubin Direct* 0.2 mg/dL (0.0-0.5); Bilirubin Total* 0.2 mg/dL (0.1-1.5); Blood Urea Nitrogen* 7 mg/dL (5-24); Carbon Dioxide* 22 mmol/L (20-32); Creatinine* 0.6 mg/dL (0.5-1.5); Est. Creatinine Clearance* 127.95; Estimated Glomerular Filt Rate 125 ml/min; Total Protein* 6.6 g/dL (6.0-8.3)
[2024-11-26 23:16] LABS: Bacteria Urine Few; Squamous Epithelial Cell Urine Few (None-Few)
[2024-11-26 23:17] LABS: Alanine Aminotransferase* 100 U/L (4-35); Alkaline Phosphatase* 155 U/L (40-150); Calcium* 8.7 mg/dL (8.4-10.6); Glucose* 104 mg/dL (60-115)
[2024-11-27] VITALS (16 sets, daily range): BP systolic 104–146; BP diastolic 66–102; PULSE 68–96; RESP 16–18; TEMP 36.5–37; O2SAT 96–98
--- NOTE | 2024-11-27 00:37 | P.LDBA_ITS ---
Subjective History of Present Illness Date Seen: 11/27/24 Narrative: Marissa is a 29-year-old G1 now P 1-0-0-1 woman who is status post normal spontaneous vaginal delivery on 11/19/2024 at 40 weeks, 3 days gestation after presenting in spontaneous labor. 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 She had a second-degree perineal laceration and a QBL of 500 mL. She gave to a female . She had an uncomplicated in-hospital course and was discharged on day 2. Her blood pressures were normal throughout her course. Tonight, she presented to the emergency room with chief complaint of elevated blood pressures noted on home monitor. She checked her blood pressure due to a recent increase in swelling. It was normal on , but was newly elevated today. Her blood pressures have been persistently elevated in the emergency room, with systolics 130s and diastolics 90s-100s. She denies headaches, visual changes, or right upper quadrant pain. Labs in the ER notable for hemoglobin of 11.1, platelets 376, creatinine 0.6, A ST 46, ALT 100, and urine dip negative for protein. Otherwise, her recovery has been smooth. She is her infant daughter, who accompanies her today. She reports scant vaginal bleeding. No dysuria or urinary incontinence. No constipation. Past medical, surgical, family, and social history are as noted in EHR Specific Issues/Plans [id number]--Ltbolv H&P done by NAVEED Rutherford on 10/26/24 # Anxiety/Depression Stable on bupropion, buspirone, fluoxetine, okay'd to refill with us during Meds managed by Arin Fragoso APRN at [place] # Pre- BMI 34.9 Taking baby ASA # Fibroids, right uterus. No further recommendations from radiology. 1.7 x 1.4 x 1.9 cm 2.5 x 1.8 x 2.2 cm # Anemia in . 9.9 at 28w-started on iron PO QOD, 11.1 at 34w Pap due COVID: initial series, not boosted Flu: declined TDAP: 09/14/2024 RSV: 09/28/2024 32wk Mental Health: 09/14/2024 34wk Hgb: 09/28/2024 :11.1 OB - Problem Based A/P Additional Plan (1) care and examination of lactating mother: Status: Acute (2) Gestational hypertension without significant proteinuria, affecting puerperium: Status: Acute Plan: Admit to Center, inpatient, for treatment of gestational hypertension with severe features. Magnesium sulfate for seizure prophylaxis for 24 hours. Strict ins and outs during that time. HELLP labs q.6 hours. She will need oral antihypertensives most likely, but I will monitor what her blood pressures do well on magnesium sulfate infusion. Anticipate discharge in the afternoon or evening of Friday after an appropriate antihypertensive regimen is established. Plan As above OB Exam Physical Exam Vital signs: Temp Pulse Resp BP Pulse Ox O2 Del Method 98.1 F 80 18 134/103 H 97 Room Air 11/26/24 21:39 11/26/24 22:09 11/26/24 22:09 11/26/24 22:09 11/26/24 22:09 11/26/24 22:09 Narrative: Physical exam: General: No acute distress Psych: Alert and oriented x3, full affect HEENT: Normocephalic, atraumatic Heart: Regular rate and rhythm, no murmur rub or gallop Lungs: Clear to auscultation bilaterally Abdomen: Soft, nontender, fundus below umbilicus Lower extremities: 2+ edema bilateral shins Pelvic exam: Deferred
[2024-11-27] MEDS: MAGNESIUM IV 4 GM/100 ML PIGGYBACK IVPB (02:22)
[2024-11-27] MEDS: MAGNESIUM Infusion 40 GM/1,000 ML IV.SOLN IVPB ×2 (02:52→21:56)
[2024-11-27] MEDS: ACETAMINOPHEN 500 MG TABLET 1000 MG PO ×3 (03:20→18:15)
[2024-11-27 08:16] LABS: Hematocrit 34.1 % (33.0-51.0); Hemoglobin* 10.8 gm/dL (12.0-16.0); Mean Corpuscular HGB Conc 32 gm/dL (32-36); Mean Corpuscular Hemoglobin 27 pg (26-34); Mean Corpuscular Volume 87 fL (80-100); Platelet Count* 367 K/uL (140-440); Red Blood Count 3.94 m/uL (4.00-5.20); White Blood Count* 9.48 K/uL (4.50-11.00)
[2024-11-27 08:19] LABS: Slide Review Reflex No
[2024-11-27 08:33] LABS: Aspartate Amino Transferase* 41 U/L (12-35); Creatinine* 0.5 mg/dL (0.5-1.5); Est. Creatinine Clearance* 156.82; Estimated Glomerular Filt Rate 131 ml/min
[2024-11-27 08:34] LABS: Alanine Aminotransferase* 93 U/L (4-35); Blood Urea Nitrogen* 6 mg/dL (5-24)
[2024-11-27] MEDS: LACTATED RINGERS 1000 ML 1,000 ML 50 ML IV (09:10)
--- NOTE | 2024-11-27 11:16 | PM.OBPNVD1 ---
OB - PN:Subj Subjective Time Seen by Provider: 11:16 Date Seen: 11/27/24 Interval history: Marissa is a 29yo s/p on 11/19 with CNM service. Her was complicated by depression and anxiety. Unremarkable course until recently. She presented to the ED yesterday with mild range BP at home and swelling. There, she was diagnosed with preeclampsia with severe features in the period due to mild range blood pressures and severe transaminitis. She was admitted for magnesium sulfate and blood pressure monitoring by Dr. Davison. Overnight, her blood pressures have been in the normal to mild range. She was not started on antihypertensive regimen. Serial HELLP labs have been obtained, demonstrating interval improvement. She notes some very mild headache, attributed to magnesium sulfate. No vision changes or right upper quadrant pain. No other acute concerns. OB - PN: Obj Exam Physical Exam: Vital signs: Temp Pulse Resp BP Pulse Ox O2 Del Method 97.7 F 94 16 124/87 96 Room Air 11/27/24 07:45 11/27/24 07:45 11/27/24 07:45 11/27/24 10:30 11/27/24 07:45 11/27/24 07:45 Narrative: General: Alert and oriented, in no acute distress. Seated upright, baby. Psych: Appropriate mood and affect. Detailed physical exam was deferred due to at time of my visit and exam by Dr. Davison in the early hours of this morning. Unremarkable mag checks by nursing. OB - PN: Obj Data Labs Labs: Laboratory Results - last 24 hr 11/26/24 11/26/24 11/27/24 22:23 22:42 08:08 WBC 9.39 9.48 RBC 4.09 3.94 L Hgb 11.1 L 10.8 L Hct 35.6 34.1 MCV 87 87 MCH 27 27 MCHC 31 L 32 RDW Coeff of Anabelle 14.9 Plt Count 376 367 Neut % (Auto) 55.0 Lymph % (Auto) 31.6 [place] % (Auto) 8.3 Eos % (Auto) 3.6 Baso % (Auto) 0.4 Neut # (Auto) 5.16 Lymph # (Auto) 2.97 H [place] # (Auto) 0.80 Eos # (Auto) 0.34 Baso # (Auto) 0.04 Abs Immat Gran (auto) 0.10 Imm/Tot Granulo (auto) 1.1 Sodium 135 Potassium 3.4 L Chloride 106 Carbon Dioxide 22 Anion Gap 7 BUN 7 6 Creatinine 0.6 0.5 Estimated Creat Clear 127.95 156.82 Estimated GFR 125 131 Glucose 104 Calcium 8.7 Total Bilirubin 0.2 Direct Bilirubin 0.2 AST 46 H 41 H ALT 100 H 93 H Alkaline Phosphatase 155 H Total Protein 6.6 Albumin 3.5 Urine Color Light yellow Urine Appearance Clear Urine pH 6.0 Ur Specific [place] <= 1.005 Urine Protein Negative Urine Glucose (UA) Negative Urine Ketones Negative Urine Blood 3+ A Urine Nitrite Negative Urine Bilirubin Negative Urine Urobilinogen 0.2 Ur Leukocyte Esterase 2+ A Urine RBC 2-5 A Urine WBC 5-10 A Ur Squamous Epith Cells Few Urine Bacteria Few A OB - PN: A/P Delivery Assessment and Plan (1) care and examination of lactating mother: Status: Acute (2) Gestational hypertension without significant proteinuria, affecting puerperium: Status: Acute Plan Marissa is a 29yo seen on PPD [address] [facility], readmitted for preE with SF given new transaminitis. Since her admission, her blood pressures have normalized. Serial HELLP labs have demonstrated interval improvement. She was not previously started on antihypertensive regimen, and given normal values at this time I will hold off. Planned have a low threshold to initiate antihypertensive medication if blood pressures rise throughout the day. - Continue diligent blood pressure monitoring and serial HELLP labs. Magnesium sulfate times 24 hours, ending at about 0200 on 11/18. - Robust autodiuresis ongoing - UOP 2.3L since admission. Continue strict I/Os. - Anticipate discharge in the afternoon or evening of Friday pending BP monitoring/initiation of antihypertensive regimen.
[2024-11-27 14:12] LABS: Hematocrit 34.5 % (33.0-51.0); Mean Corpuscular HGB Conc 32 gm/dL (32-36); Mean Corpuscular Hemoglobin 28 pg (26-34); Mean Corpuscular Volume 87 fL (80-100); Platelet Count* 375 K/uL (140-440); Red Blood Count 3.97 m/uL (4.00-5.20); White Blood Count* 9.03 K/uL (4.50-11.00)
[2024-11-27 14:15] LABS: Slide Review Reflex No
[2024-11-27 14:29] LABS: Aspartate Amino Transferase* 41 U/L (12-35); Creatinine* 0.7 mg/dL (0.5-1.5); Est. Creatinine Clearance* 112.01; Estimated Glomerular Filt Rate 121 ml/min
[2024-11-27 14:30] LABS: Alanine Aminotransferase* 92 U/L (4-35); Blood Urea Nitrogen* 6 mg/dL (5-24)
[2024-11-27] MEDS: DOCUSATE SODIUM 100 MG CAPSULE PO (15:29)
[2024-11-27] MEDS: OMEPRAZOLE 20 MG CAPSULE DR PO (15:29)
[2024-11-27] MEDS: BUSPIRONE 10 MG TABLET PO ×2 (15:30→21:43)
[2024-11-27] MEDS: buPROPion XL 150 MG TABLET PO (15:30)
[2024-11-27 20:06] LABS: Hematocrit 35.8 % (33.0-51.0); Hemoglobin* 11.3 gm/dL (12.0-16.0); Mean Corpuscular HGB Conc 32 gm/dL (32-36); Mean Corpuscular Hemoglobin 27 pg (26-34); Mean Corpuscular Volume 87 fL (80-100); Platelet Count* 385 K/uL (140-440); Red Blood Count 4.13 m/uL (4.00-5.20); Slide Review Reflex No; White Blood Count* 8.36 K/uL (4.50-11.00)
[2024-11-27 20:27] LABS: Alanine Aminotransferase* 86 U/L (4-35); Aspartate Amino Transferase* 49 U/L (12-35); Blood Urea Nitrogen* 10 mg/dL (5-24); Creatinine* 0.6 mg/dL (0.5-1.5); Est. Creatinine Clearance* 130.68; Estimated Glomerular Filt Rate 125 ml/min
[2024-11-27] MEDS: FLUOXETINE HCL 20 MG CAPSULE 60 MG PO (21:43)
[2024-11-28] VITALS (9 sets, daily range): BP systolic 102–136; BP diastolic 66–92; PULSE 72–81; RESP 18; TEMP 36.5–36.6; O2SAT 97–98
[2024-11-28 04:30] LABS: Hematocrit 35.7 % (33.0-51.0); Hemoglobin* 11.3 gm/dL (12.0-16.0); Mean Corpuscular HGB Conc 32 gm/dL (32-36); Mean Corpuscular Hemoglobin 28 pg (26-34); Mean Corpuscular Volume 87 fL (80-100); Platelet Count* 429 K/uL (140-440); White Blood Count* 8.81 K/uL (4.50-11.00)
[2024-11-28 04:34] LABS: Slide Review Reflex No
[2024-11-28 04:40] LABS: Aspartate Amino Transferase* 37 U/L (12-35); Creatinine* 0.6 mg/dL (0.5-1.5); Est. Creatinine Clearance* 130.68; Estimated Glomerular Filt Rate 125 ml/min
[2024-11-28 04:41] LABS: Alanine Aminotransferase* 85 U/L (4-35); Blood Urea Nitrogen* 11 mg/dL (5-24)
[2024-11-28] MEDS: OMEPRAZOLE 20 MG CAPSULE DR PO (09:08)
[2024-11-28] MEDS: BUSPIRONE 10 MG TABLET PO (09:08)
[2024-11-28] MEDS: buPROPion XL 150 MG TABLET PO (09:08)
[2024-11-28] MEDS: DOCUSATE SODIUM 100 MG CAPSULE PO (09:08)
--- NOTE | 2024-11-28 10:34 | P.DS_ITS ---
DS: Providers Provider Date Seen: 11/28/24 Date of admission: 11/27/24 00:59 Primary care physician: Not a Local Provider Admitting Clinician: Saumya Davison MD Attending Physician on discharge: Saumya Davison MD Exam Narrative: Exam Narrative: General: Alert and oriented, in no acute distress. Psych: Appropriate mood and affect. Abdomen: Soft, nontender nondistended. No rebound or guarding. Fundus at 2 below umbilicus. Const: Vital Signs, click to edit/add: Vital Signs - 24 hr 11/27/24 12:09 11/27/24 14:30 11/27/24 17:00 Temperature 97.8 F 98.4 F Pulse Rate [Pulse Oximeter] 86 86 87 Respiratory Rate 18 16 18 Blood Pressure [Le ft Arm] 125/86 104/66 117/84 Pulse Oximetry 97 96 97 Oxygen Delivery Me thod Room Air Room Air Room Air 11/27/24 19:15 11/27/24 21:00 11/27/24 23:00 Temperature 98.6 F 98.4 F 98.2 F Pulse Rate [Pulse Oximeter] 76 68 74 Respiratory Rate 18 18 18 Blood Pressure [Le ft Arm] 118/86 114/78 118/68 Pulse Oximetry 98 98 98 Oxygen Delivery Me thod Room Air Room Air Room Air 11/28/24 01:30 11/28/24 03:47 11/28/24 04:02 Temperature 97.8 F 97.7 F Pulse Rate [Pulse Oximeter] 78 81 Respiratory Rate 18 18 Blood Pressure [Le ft Arm] 128/76 136/91 H 132/86 Pulse Oximetry 98 98 Oxygen Delivery Me thod Room Air Room Air 11/28/24 06:26 11/28/24 09:10 Temperature Pulse Rate [Pulse Oximeter] 76 Respiratory Rate 18 Blood Pressure [Le ft Arm] 124/85 125/88 Pulse Oximetry 97 Oxygen Delivery Me thod Room Air OB - DS: Summary Hospital Course Hospital Course: Marissa is a 29yo s/p on 11/19 with CNM service. Her was complicated by depression and anxiety. Unremarkable course until recently. She presented to the ED on 12/02/26, with mild range BP at home and swelling. There, she was diagnosed with preeclampsia with severe features in the period due to mild range blood pressures and severe transaminitis. She was admitted for magnesium sulfate and blood pressure monitoring by Dr. Davison. Since admission, her BP have been almost entirely normotensive on no medications. She denies headaches, vision changes right upper quadrant pain. She is status post 24 hours of magnesium sulfate at 0200. She notes she is feeling much better after Mag has been stopped. Serial HELLP labs have demonstrated interval improvement in her transaminitis. She has no other acute concerns. She is motivated to discharge to home today. She is planning to return to clinic on 12/02 for baby care, where she would be open to it MD BP check. Addendum at 1400: She did have another mild range BP prior to dismissal, where labetolol 100mg BID was initiated. Time Spent with Patient Time attestation: Total time spent providing and/or coordinating discharge services: Discharge Plan Discharge Disposition: Home, Self-Care Date of Admission: 11/27/24 00:59 Primary Care Provider: Provider,Not a Local Condition: Stable Anticipated Discharge Date/Time: 11/28/24 16:00 Discharge Medications: New labetalol 100 mg Tablet 100 mg PO BID Qty: 60 0RF Continued Plus DHA 27 mg iron-1 mg -312 mg-250 mg combo pack 1 pkg PO DAILY PRN calcium carbonate-vitamin D3 600 mg-20 mcg (800 unit) tablet 1 tab PO BID ketoconazole 2 % shampoo 1 applic topical .1xw clobetasol 0.05 % ointment 1 applic topical ONCE PRN omeprazole 20 mg capsule,delayed release(DR/EC) 20 mg PO QDAY bupropion HCl 150 mg tablet extended release 24 hr 150 mg PO QAM Qty: 90 3RF ferrous fumarate 324 mg (106 mg iron) tablet 324 mg PO .every other day Qty: 60 1RF docusate sodium 100 mg Capsule 100 mg PO BID Qty: 90 0RF Rx Instructions: Take 1-2 tablets daily as needed for constipation. fluoxetine 40 mg capsule 40 mg PO QDAY Qty: 60 2RF Rx Instructions: 40 mg + 20 mg capsule for 60 mg total orally every day; fluoxetine 20 mg capsule 20 mg PO QDAY Qty: 60 2RF Rx Instructions: 40 mg + 20 mg capsule for 60 mg total orally every day; buspirone 10 mg tablet 10 mg PO BID Qty: 60 1RF Discharge Orders: Discharge Order (Routine); Ordered 11/28/24 Ordered By: Saida Chapin Additional Instructions: Discharge instructions were reviewed with the patient including signs and symptoms of infection and home going medications Nothing vaginally for 6 weeks: no tampons or intercourse Do not drive while taking narcotic pain medication(s) Off Work or School for 8 weeks Symptoms to report to doctor: * Bleeding that saturates more than one pad per hour * Passing clots larger than the size of a golf ball * Pain not relieved by prescribed medication * Fever above 100.4 degrees Fahrenheit * A foul vaginal odor * Difficulty in emotions, mood, and functions * Thoughts of hurting yourself and/or * Painful, reddened area in your breast * Any drainage, redness, or tenderness in your IV/epidural site * Severe headache that doesn't improve after taking medications * Changes in vision, including temporary loss of vision, blurred vision, and/or light sensitivity * Upper abdominal pain (usually under ribs on the right side) * Decrease in urination or painful, frequent urinating * Chest pain * Shortness of breath * Tenderness or pain with redness and/swelling in the calf(s) of your leg [facility] 12/02/23 Call with BP greater than or equal to 160/110 or persistent values of greater than or equal to 140/90 Follow Up Appointments: Provider,Not a Local [Primary Care Provider] - Forms: [facility] Info Instructions
[2024-11-28] MEDS: LABETALOL HCL 100 MG TABLET PO (13:52)
== END 2024-11-28 17:02 | disposition home or self-care (01) | DRG 561 ==
LOC: ED 11-27 00:11 → OB 11-27 01:57
PROVIDERS: Admitting Provider Obstetrics & Gynecology; Emergency Provider Emergency Medicine; Visit Provider Obstetrics & Gynecology
DX: O14.15 Severe pre-eclampsia, complicating the puerperium (principal); O99.345 Other mental disorders complicating the puerperium; F41.9 Anxiety disorder, unspecified; F32.A Depression, unspecified
CPT/HCPCS: 36415; 80048; 80076; 81001; 82565; 84450; 84460; 84520; 85025; 85027; 87086; 99284; 99285; A9270; J3475; J7120

== ENCOUNTER 2024-12-02 13:12 | Outpatient (CLI) | payer BC, MEDICAID, SELFPAY ==
--- NOTE | 2024-12-02 16:12 | P.LACCB_ITS ---
Consult Note - Mom Date of Visit Date of visit: 12/02/24 Reason for consultation: Assistance Needed (latching difficulty) Visit Code: Visit Patient's Information Phone number: [phone] : 1 Para: 1 Allergies citalopram (From Celexa) Allergy (Severe, Verified 12/02/24 11:05) Anxiety menthol Allergy (Intermediate, Verified 12/02/24 11:05) Hives Mother's medical history: Anxiety and Depression Mother's Medical History: Medical History (Updated 11/29/24 @ 00:00 by Background Daemon) Anemia affecting ?O99.019 - Anemia complicating , unspecified trimester (ICD-10) Generalized anxiety disorder ?F41.1 - Generalized anxiety disorder (ICD-10) Family history of thyroid disease ?Z83.49 - Family history of other endocrine, nutritional and metabolic diseases (ICD-10) Depression ?F32.A - Depression, unspecified (ICD-10) Elbow dislocation ?S53.106A - Unspecified dislocation of unspecified ulnohumeral joint, initial encounter (ICD-10) 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, 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, 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 Delivery Information Delivery type: Vaginal Gestational Age: 40+3 Gestational Weight For Age: AGA Weight: 3.16 kg Discharge Weight: 3.008 kg Baby's Information Baby's Age at Visit: 13 days Baby's Provider or Clinic: [facility] Past Experience Past Experience: No Current Frequency of Day Feedings: every 2-4 hours Frequency of Night Feedings: every 3-4 hours Both Breasts: No Suck: strong Latch: needs nipple shield to latch Length of Time: 10-20 minutes Goals: 1 year Pumping Pumping: No Supplementing EBM Supplement: No Formula Supplement: No Baby Elimination Number of Wet Diapers a Day: ea feeding Number of BM a Day: almost ea feeding, spring yellow in color Breast/Nipple Condition Breast Information: Breasts are symmetrical with rounded lower quadrants, intramammary distance is less than 1.5 inches. No erythema. Nipples are supple, everted prior to feeding. Breast Shape: Round and Pendulous Engorgement: No Maternal Nipple Condition - Left: Short Maternal Nipple Condition - Right: Short Sore Nipples: No Interventions for Sore Nipples: Lansinoh/Nipple Cream Baby Assessment Skin: Normal Tongue/frenulum: Normal/elastic and Restricted mid-range (slight) Palate: Average Lips: Relaxed and Symmetrical Jaw Alignment: Symmetrical Mucosa: [place], moist Onsite Observation Pre-Feed weight: 3.414 kg Post-Feed weight: 3.468 kg Milk Transferred (mL): 54 Position: Cross cradle Attachment/latch-on achieved: With nipple shield Suck pattern: Suck burst and normal rest Swallow: Gulping Behavior following feed: Alert, content Pre-Nursing Left Nipple: Within Normal Limits Pre-Nursing Right Nipple: Within Normal Limits Post-Nursing Left Nipple: Within Normal Limits Post-Nursing Right Nipple: Within Normal Limits Assessments/Interventions Assessments/Interventions: Worked with mom and baby to attempt to latch without nipple shield. Baby upset, crying, pushing/flailing arms With nipple shield on, baby latches immediately, strong sucks, and gulping present Even with shield, baby still having some choking episodes from mom's strong letdown; after about 8 minutes, babe can stay latched and manage milk flow. When baby comes off breast, mom's nipple fills shield about 1/[address] but immediately retracts to flatter stage, Discussed challenge of with flatter nipples, persistence to keep trying to latch without shield as mom feels able; ok to try 1-2 times/day and use nipple shield as needed. Baby will need to be able and willing to open mouth yawn wide to get enough breast in her mouth for a successful latch Answered questions about pumping and bottling Encouraged a return visit as needed if would like more assistance with latching in a few weeks Education provided: Early feeding cues to maximize timing of latching, Asymmetric latch technique for wide/deep latch to increase milk, Transfer for baby and increase comfort for mom, Supply/demand nature of milk supply, Need for frequent stimulation/milk removal, Alternative feeding methods (SNS, cup, finger feeding, bottling) and Use of nipple shield Follow-Up Suggested follow up: Appointment as needed Time Spent Time spent with patient (min): 60 Meds Home Medications and Allergies Home Medications ?Medication ?Instructions ?Recorded ?Confirmed ?Type calcium 600 mg (as 1 tab PO BID 04/08/24 12/02/24 History carbonate)-vitamin D3 20 mcg (800 unit) tablet clobetasol 0.05 % topical ointment 1 applic topical ONCE PRN 04/08/24 12/02/24 H istory ketoconazole 2 % shampoo 1 applic topical .1xw 04/08/24 12/02/24 History vits-iron 27 mg-folic ac 1 pkg PO DAILY PRN 04/08/24 12/02/24 History 1 mg-om3 312 mg-dha 250 mg oral pack ( Plus DHA) omeprazole 20 mg capsule,delayed 20 mg PO QDAY 07/02/24 12/02/24 History release Allergies Allergy/AdvReac Type Severity Reaction Status Date / Time citalopram (From ANPI) Allergy Severe Anxiety Verified 12/02/24 11:05 menthol Allergy Intermediate Hives Verified 12/02/24 11:05
== END 2024-12-02 13:13 | disposition home or self-care (01) ==
LOC: OB LAC 13:14
PROVIDERS: Visit Provider Advanced Practice Midwife
DX: Z39.1 Encounter for care and examination of lactating mother (principal)
CPT/HCPCS: G0463

== ENCOUNTER 2025-01-13 15:24 | Outpatient (CLI) | payer BC, MEDICAID, SELFPAY ==
[2025-01-16 07:21] LABS: HPV Source Cervical; HPV, High Risk by TMA Not Detected
== END 2025-01-13 15:25 | disposition home or self-care (01) ==
PROVIDERS: Visit Provider Advanced Practice Midwife
DX: Z12.4 Encounter for screening for malignant neoplasm of cervix (principal)
CPT/HCPCS: 87624; 87625; 88141; 88142

== ENCOUNTER 2025-05-31 15:10 | Outpatient (CLI) | payer BC, SELFPAY | END 2025-05-31 15:11 | disposition home or self-care (01) | LOC: NFLDREF 15:34 | PROVIDERS: Visit Provider Midwife | DX: F32.A Depression, unspecified (principal); F41.1 Generalized anxiety disorder | CPT/HCPCS: 84443 ==

== ENCOUNTER 2025-09-27 19:08 | Outpatient (CLI) | payer BC, MEDICAID, SELFPAY ==
[2025-09-27 21:37] LABS: Bacterial Vaginosis* Negative (Negative); Candida glab/krus NOT DETECTED (No Detected)
== END 2025-09-27 19:09 | disposition home or self-care (01) ==
LOC: NFLDREF 19:08
PROVIDERS: Visit Provider Midwife
DX: N89.8 Other specified noninflammatory disorders of vagina (principal)
CPT/HCPCS: 81513; 87481; 87661